=== PATIENT | female | born 1945 | race Caucasian/White ===

== ENCOUNTER 2018-06-22 19:43 | Inpatient (IN) | payer MEDICARE, OTHER ==
[2018-06-22] MEDS ORDERED: SODIUM CHLORIDE 0.9% FLUSH 10 ML SOL IV PRN (19:50)
[2018-06-22] MEDS ORDERED: ASPIRIN 81 MG CHEWABLE CTB PO STA (19:50)
[2018-06-22] MEDS ORDERED: NITROGLYCERIN 0.4 MG TAB SL PRN (19:50)
[2018-06-22] MEDS ORDERED: DILTIAZEM 5 MG/ML SOL IV ONE ×8 (20:00→23:24)
[2018-06-22] MEDS ORDERED: ASPIRIN 81 MG CHEWABLE CTB ONE (20:06)
[2018-06-22 20:11] LABS: HEMATOCRIT 45 % (35-47); HEMOGLOBIN 14.7 gm/dl (12.0-15.5); INR 1.05 (0.86-1.12); MEAN CORPUSCULAR HEMOGLOBIN 29.4 pg (27.0-32.0); MEAN CORPUSCULAR VOLUME 89 fL (81-99)
[2018-06-22] MEDS ORDERED: SODIUM CHLORIDE 0.9% 1000ML 1,000 ML IV ONE ×2 (20:17→20:20)
[2018-06-22 20:18] LABS: BLOOD UREA NITROGEN 33 mg/dl (7-18); CALCIUM 8.3 mg/dl (8.5-10.1); CARBON DIOXIDE 29.5 mEq/L (21-32); CHLORIDE 102 mMol/L (98-107); CREATINE KINASE 69 U/L (26-192); CREATININE 1.64 mg/dl (0.60-1.00); GLUCOSE 103 mg/dl (74-106); SODIUM 140 mMol/L (136-145); TROP I < 0.017 ng/ml (0.000-0.056)
[2018-06-22 20:27] LABS: BAND NEUTROPHILS % (MANUAL) 3 %; BASOPHILS % (MANUAL) 0 % (0-3); EOSINOPHILS % (MANUAL) 1 % (0-9); LYMPHOCYTES % (MANUAL) 28 % (10-50); MONOCYTES % (MANUAL) 11 % (0-12); NEUTROPHILS % (MANUAL) 57 % (37-80); NORMAL RBCS PRESENT
[2018-06-22] MEDS ORDERED: LORAZEPAM 2 MG/ML 10ML MDV 2 MG/ML VIAL IV PRN (22:41)
[2018-06-22] MEDS ORDERED: SODIUM CHLORIDE 0.9% 1000ML 1,000 ML IV SCH (22:45)
[2018-06-22] MEDS ORDERED: DILTIAZEM 5 MG/ML 125 MG in SODIUM CHLORIDE 0.9% 100 ML 100 ML IV SCH (22:45)
[2018-06-22] MEDS ORDERED: SODIUM CHLORIDE 0.9% 100 ML 100 ML IV ONE ×2 (23:23→23:24)
[2018-06-22] MEDS ORDERED: LORAZEPAM 2 MG/ML SOL IV PRN (23:32)
[2018-06-22] MEDS ORDERED: LORAZEPAM 2 MG/ML SOL ONE (23:39)
[2018-06-23] MEDS ORDERED: ATORVASTATIN 10 MG TAB ONE (08:08)
[2018-06-23] MEDS ORDERED: METOPROLOL SUCCINATE 50 MG ER TAB ONE (08:14)
[2018-06-23] MEDS ORDERED: RIVAROXABAN 10 MG TAB PO ONE (08:16)
[2018-06-23] MEDS: RIVAROXABAN 10 MG TAB PO SCH (08:24)
[2018-06-23] MEDS: LISINOPRIL 20 MG TAB PO SCH (08:27)
[2018-06-23] MEDS: ASPIRIN EC 81 MG PO SCH (08:27)
[2018-06-23 08:40] LABS: CALCIUM 8.2 mg/dl (8.5-10.1); CARBON DIOXIDE 31.7 mEq/L (21-32)
[2018-06-23] MEDS ORDERED: AMLODIPINE 5 MG TAB PO SCH (09:00)
[2018-06-23] MEDS ORDERED: ATORVASTATIN CALCIUM 80 MG TAB PO SCH (09:00)
[2018-06-23] MEDS ORDERED: LISINOPRIL 5 MG TAB PO SCH (09:00)
[2018-06-23] MEDS ORDERED: METOPROLOL SUCCINATE 25 MG TAB.ER.24H PO SCH (09:00)
[2018-06-23] MEDS ORDERED: METOPROLOL TARTRATE 25 MG TAB PO SCH (11:00)
[2018-06-23] MEDS: FLUTICASONE 110 MCG INH SCH ×2 (12:05→20:27)
[2018-06-23] MEDS ORDERED: METOPROLOL SUCCINATE 50 MG ER TAB PO ONE (15:00)
[2018-06-23] MEDS ORDERED: METOPROLOL SUCCINATE 50 MG ER TAB PO SCH ×2 (15:00→21:00)
[2018-06-23] MEDS ORDERED: DILTIAZEM ER 120 MG C24 ONE (19:35)
[2018-06-23] MEDS: DILTIAZEM ER 120 MG C24 PO SCH (20:28)
[2018-06-23] MEDS ORDERED: LORAZEPAM 2 MG/ML SOL IV ONE (23:15)
[2018-06-23] MEDS ORDERED: LORAZEPAM 2 MG/ML 10ML MDV 2 MG/ML VIAL IV ONE (23:30)
[2018-06-24 00:01] VITALS: RESP 16
[2018-06-24] MEDS ORDERED: DILTIAZEM HYDROCHLORIDE 60 MG TAB PO SCH (07:00)
[2018-06-24 08:15] VITALS: BP 120/84; PULSE 114; TEMP 97.7; O2SAT 96
[2018-06-24] MEDS: ASPIRIN EC 81 MG PO SCH (08:51)
[2018-06-24] MEDS: RIVAROXABAN 10 MG TAB PO SCH (08:53)
[2018-06-24] MEDS: LISINOPRIL 20 MG TAB PO SCH (08:53)
[2018-06-24] MEDS: FLUTICASONE 110 MCG INH SCH (08:54)
[2018-06-24] MEDS: DILTIAZEM ER 120 MG C24 PO SCH (08:58)
[2018-06-24] MEDS ORDERED: DILTIAZEM ER 120 MG C24 PO SCH (09:00)
[2018-06-24] MEDS ORDERED: METOPROLOL SUCCINATE 50 MG ER TAB PO SCH (09:00)
[2018-06-24] MEDS ORDERED: ATORVASTATIN 10 MG TAB PO SCH (09:00)
[2018-06-24] MEDS ORDERED: AMLODIPINE 5 MG TAB PO SCH (09:00)
[2018-06-24] MEDS ORDERED: PNEUMOCOCCAL VACCINE 0.5 ML SOL IM ONE (10:35)
== END 2018-06-24 12:00 | disposition home or self-care (01) | DRG 310 ==
LOC: ED 19:43 → ACUTE CARE 22:12
PROVIDERS: ADMIT Family Medicine; ATTEND Family Medicine
DX: I48.91 Unspecified atrial fibrillation (principal); I10 Essential (primary) hypertension; R79.82 Elevated C-reactive protein (CRP); Z95.818 Presence of other cardiac implants and grafts
CPT/HCPCS: 36415; 71045; 80048; 82550; 84484; 85007; 85027; 85610; 85730; 90732; 93005; 93012; 96365; 96374; 99222; 99232; 99239; 99285; J2060; A9270-GY; G0008; J3490